=== PATIENT | male | born 1940 | race Caucasian/White ===

== ENCOUNTER 2016-11-28 09:44 | Inpatient (IN) | payer OTHER ==
[2016-11-28] MEDS ORDERED: HYDROmorphONE/DILAUDID 1 MG/ML SYR IVP ONE ×2 (10:36→12:23)
--- NOTE | 2016-11-28 10:40 | EDPHY ---
H & P Time Seen by Provider: 11/28/16 10:18 HPI/ROS: CHIEF COMPLAINT: Abdominal pain HISTORY OF PRESENT ILLNESS: 76-year-old male presents to the emergency department by private vehicle complaining of severe left-sided abdominal pain that began abruptly on evening, 2 days ago. Patient states that the pain has been constant. No nausea or vomiting. He has not had an appetite and has not eaten anything in the last 2 days. He had a small bowel movement 2 days ago. Has had a history of diverticulitis in the past, however this feels different. He uses supplemental oxygen at night time however because of the pain he has been using his oxygen more regularly. Denies chest pain. Denies headache. No fevers or chills. No reported trauma. REVIEW OF SYSTEMS: Constitutional: No fever, no chills. Eyes: No double or blurry vision. ENT: No sore throat. Respiratory: No cough, no shortness of breath. Cardiac: No chest pain. Gastrointestinal: Abdominal pain as above. No vomiting or diarrhea. Genitourinary: No dysuria. Musculoskeletal: No neck or back pain. Skin: No rashes. Neurological: No headache. Past Medical/Surgical History: Prostatectomy for prostate cancer, appendectomy, orthopedic surgeries, diverticulitis Primary care provider is Dr. Henrry Lynne Social History: Smoking Status: Former smoker Physical Exam: General Appearance: Alert, moderate respiratory distress. O2 saturation 96% on supplemental oxygen. Afebrile. Eyes: Pupils equal and round. Extraocular motions are all intact. ENT: Mouth: Mucous membranes moist. Respiratory: No wheezing, rhonchi, or rales, lungs are clear to auscultation. Cardiovascular: Regular rate and rhythm. Gastrointestinal: Abdomen is soft. Tenderness with palpation in for specially the left upper quadrant. There is no rebound, guarding or masses noted. No CVA tenderness bilaterally. Neurological: Alert and oriented x 3, cranial nerves II through XII grossly intact Skin: Warm and dry, no rashes. Musculoskeletal: Nontender to palpate along the cervical, thoracic or lumbar spine. Neck is supple. Extremities: Full range of motion and no peripheral edema. Psychiatric: Patient is oriented X 3, there is no agitation. Constitutional: Initial Vital Signs Temperature (C) 36.8 C 11/28/16 09:47 Heart Rate 83 11/28/16 09:47 Respiratory Rate 20 11/28/16 09:47 Blood Pressure 157/84 H 11/28/16 09:47 O2 Sat (%) 89 L 11/28/16 09:47 O2 Delivery Mode Nasal Cannula O2 (L/minute) 3 Allergies/Adverse Reactions: Sulfa (Sulfonamide Antibiotics) Allergy (Unknown, Verified 03/13/12 11:37) Home Medications: Medication Instructions Recorded Allopurinol [Allopurinol 300 MG 300 mg PO DAILY 11/28/16 (RX)] Aspirin [Aspirin 81mg (*)] 81 mg PO DAILY 11/28/16 Ipratropium/Albuterol [Combivent 1 inh IH BID 11/28/16 Respimat Inhal [place](*)] Ipratropium/Albuterol [Duoneb (*)] 3 ml IH QID PRN 11/28/16 Pantoprazole Sodium [Protonix 40mg 40 mg PO DAILY 11/28/16 (*)] Simvastatin [Zocor] 40 mg PO DAILY@18 11/28/16 Medical Decision Making - Diagnostics Imaging Results: Imaging Impressions Abdomen/Pelvis CT 11/28/16 11:00 Impression: 1. Development of left hydronephrosis and dilatation of the proximal left ureter to the level of the infrarenal abdominal aortic aneurysm. 2. The infrarenal abdominal aortic aneurysm has a diameter estimated at 4.7 cm; it was estimated at 4.5 cm in March. 3. Extensive diverticulosis without definite diverticulitis. 4. Suboptimal evaluation of the bladder due to beam hardening artifact secondary to bilateral hip arthroplasties. 5. See above report for additional findings. Results called and discussed with Delisa Vuong PA-C on 11/28/2016 at 1157 hours. Imaging: Discussed imaging studies w/ call center agent Radiologist ED Course/Re-evaluation: 76-year-old male presents to the emergency department with left upper quadrant abdominal pain. The patient was found to have a creatinine 1.8 and therefore was not given IV contrast. He did receive IV normal saline in the emergency department. CT scan of the abdomen and pelvis without contrast revealed hydronephrosis with obstruction to the left proximal ureter at the level of the infrarenal abdominal aortic aneurysm which now measures 4.7 cm compared with 4.5 cm in March. I initially spoke with Dr. Hussein Cannon who was on-call for urology and also because this patient was in [facility] patient. Dr. Hussein Cannon felt that his symptoms were likely related to his abdominal aortic aneurysm possibly causing the obstruction. I spoke with Dr. Braydon Melo who is on- call for General surgery who reviewed the patient's CT scan does not feel that the patient's pain is related to the AAA. He feels that it is a urologic problem and recommended consulting Urology. The patient has had a previous prostatectomy by Dr. Kike Murray many years ago. Initially the family requested to consult with Dr. Hussein Cannon, however they have changed her mind and now would like who was on-call for Dr. Kike Murray to evaluate the patient. I spoke with Dr. Dalton Kendrick who agrees that the patient can be admitted to the hospitalist and then he also recommended possible nephrostomy tube placed in Interventional Radiology. The patient will be admitted to Dr. Rigo Rain to the medical-surgical floor. Interventional Radiology had already been contacted. Patient required IV Dilaudid for pain control. The case was discussed with Dr. Karen Chen, supervising physician, who did not directly evaluate the patient but agrees with treatment and plan. Differential Diagnosis: Including but not limited to kidney stone, renal colic, ureteral obstruction, AAA, urinary tract infection, pyelonephritis, metastasis - Data Points Laboratory Results: Laboratory Results 11/28/16 10:00 11/28/16 10:00 11/28/16 11/28/16 11/28/16 10:00 10:00 10:00 WBC 17.12 10^3/uL H 10^3/uL (3.80-9.50) RBC 5.41 10^6/uL 10^6/uL (4.40-6.38) Hgb 16.8 g/dL g/dL (13.7-17.5) Hct 49.6 % % (40.0-51.0) MCV 91.7 fL fL (81.5-99.8) MCH 31.1 pg pg (27.9-34.1) MCHC 33.9 g/dL g/dL (32.4-36.7) RDW 15.9 % H % (11.5-15.2) Plt Count 171 10^3/uL 10^3/uL (150-400) MPV 12.2 fL H fL (8.7-11.7) Neut % (Auto) 85.5 % H % (39.3-74.2) Lymph % (Auto) 6.3 % L % (15.0-45.0) [place] % (Auto) 7.2 % % (4.5-13.0) Eos % (Auto) 0.1 % L % (0.6-7.6) Baso % (Auto) 0.4 % % (0.3-1.7) Nucleat RBC Rel Count 0.0 % % (0.0-0.2) Absolute Neuts (auto) 14.65 10^3/uL H 10^3/uL (1.70-6.50) Absolute Lymphs (auto) 1.08 10^3/uL 10^3/uL (1.00-3.00) Absolute Monos (auto) 1.23 10^3/uL H 10^3/uL (0.30-0.80) Absolute Eos (auto) 0.01 10^3/uL L 10^3/uL (0.03-0.40) Absolute Basos (auto) 0.06 10^3/uL 10^3/uL (0.02-0.10) Absolute Nucleated RBC 0.00 10^3/uL 10^3/uL (0-0.01) Immature Gran % 0.5 % % (0.0-1.1) Immature Gran # 0.09 10^3/uL 10^3/uL (0.00-0.10) Sodium 137 mEq/L mEq/L (134-144) Potassium 4.5 mEq/L mEq/L (3.5-5.2) Chloride 101 mEq/L mEq/L (97-110) Carbon Dioxide 23 mEq/l mEq/l (22-31) Anion Gap 13 mEq/L mEq/L (8-16) BUN 24 mg/dL H mg/dL (7-23) Creatinine 1.8 mg/dL H mg/dL (0.7-1.3) Estimated GFR 37 Glucose 123 mg/dL H mg/dL (70-100) Calcium 10.7 mg/dL H mg/dL (8.5-10.4) Phosphorus 2.8 mg/dL mg/dL (2.5-4.5) PTH Intact 140.5 pg/ml H pg/ml (10.8-79.4) Medications Given: Discontinued Medications Hydromorphone HCl (Dilaudid) 0.5 mg IVP EDNOW ONE Stop: 11/28/16 10:37 Last Admin: 11/28/16 10:44 Dose: 0.5 mg Hydromorphone HCl (Dilaudid) 0.5 mg IVP EDNOW ONE Stop: 11/28/16 12:24 Last Admin: 11/28/16 12:30 Dose: 0.5 mg Sodium Chloride (Ns) 1,000 mls @ 0 mls/hr IV ONCE ONE PRN Reason: Wide Open Stop: 11/28/16 11:04 Last Admin: 11/28/16 11:21 Dose: 1,000 mls Ceftriaxone Sodium/Dextrose (Rocephin 1 Gm (Premix)) 50 mls @ 100 mls/hr IV ONCALL ONE PRN Reason: Protocol Stop: 11/28/16 16:33 Last Admin: 11/28/16 16:43 Dose: 50 mls Departure - Departure Disposition: [facility] Inpatient Acute Clinical Impression: Obstructive uropathy Abdominal pain Qualifiers: Abdominal location: left upper quadrant Qualified Code(s): R10.12 - Left upper quadrant pain Hydronephrosis Qualifiers: Hydronephrosis type: unspecified Qualified Code(s): N13.30 - Unspecified hydronephrosis Abdominal aortic aneurysm Qualifiers: Presence of rupture: without rupture Qualified Code(s): I71.4 - Abdominal aortic aneurysm, without rupture Condition: Fair
[2016-11-28 10:44] LABS: % IMMATURE GRANULYOCYTES 0.5 % (0.0-1.1); ABSOLUTE IMMATURE GRANULOCYTES 0.09 10^3/uL (0.00-0.10); ADD DIFF? NO; ADD MORPH? NO; ADD SCAN? NO; ATYPICAL LYMPHOCYTE FLAG 0 (0-99); FRAGMENT RBC FLAG 0 (0-99); HEMATOCRIT 49.6 % (40.0-51.0); HEMOGLOBIN 16.8 g/dL (13.7-17.5); LEFT SHIFT FLG 0 (0-99); LIPEMIA HEMOLYSIS FLAG 90 (0-99); MEAN CELL HEMOGLOBIN 31.1 pg (27.9-34.1); MEAN CELL HEMOGLOBIN CONCENTR. 33.9 g/dL (32.4-36.7); MEAN CELL VOLUME 91.7 fL (81.5-99.8); MEAN PLATELET VOLUME 12.2 fL (8.7-11.7); PLATELET CLUMPS FLAG 0 (0-99); PLATELET COUNT 171 10^3/uL (150-400); RED BLOOD CELL COUNT 5.41 10^6/uL (4.40-6.38); RED CELL DISTRIBUTION WIDTH 15.9 % (11.5-15.2)
[2016-11-28 10:54] LABS: ANION GAP 13 mEq/L (8-16); CALCIUM 10.7 mg/dL (8.5-10.4); CARBON DIOXIDE 23 mEq/l (22-31); CHLORIDE 101 mEq/L (97-110); CREATININE 1.8 mg/dL (0.7-1.3); GLOMERULAR FILTRATION RATE 37; GLUCOSE 123 mg/dL (70-100); POTASSIUM 4.5 mEq/L (3.5-5.2); SODIUM 137 mEq/L (134-144)
[2016-11-28] MEDS ORDERED: NS 1,000 ML IV ONE (11:03)
[2016-11-28] MEDS ORDERED: PROMETHAZINE HCL 25 MG/ML INJ IVP PRN (14:41)
[2016-11-28] MEDS ORDERED: ACETAMINOPHEN 325 MG TAB PO PRN (14:41)
[2016-11-28] MEDS ORDERED: ONDANSETRON 4 MG/2 ML VIAL IVP PRN (14:41)
[2016-11-28] MEDS ORDERED: BISACODYL 10 MG SUPP PR PRN (14:43)
[2016-11-28] MEDS ORDERED: LACTULOSE 20 GM/30 ML UDCUP PO PRN (14:43)
[2016-11-28] MEDS ORDERED: MAGNESIUM HYDROXIDE 30 ML UDCUP PO PRN (14:43)
[2016-11-28] MEDS ORDERED: POLYETHYLENE GLYCOL 3350 17 GM PKT PO PRN (14:43)
--- NOTE | 2016-11-28 15:18 | GHP ---
[f rep st] HISTORY AND PHYSICAL DATE OF ADMISSION: 11/28/2016 CHIEF COMPLAINT: Abdominal pain. HISTORY OF PRESENT ILLNESS: This is a 76-year-old male with history of prostate cancer and kidney s tones, who presented to the emergency department today with sudden onset of left lower abdominal caty n that began abruptly at 7:30 at night on . Since the onset, the pain is described as a con stant 6/10 crampy pain in his left lower abdomen. It has been associated with nausea and vomiting. He has not had anything to eat since the onset of pain. He denies any fevers, but has had some chi lls. He has not had this problem before. He states that nothing has helped this pain so far. PAST MEDICAL HISTORY: 1. Chronic obstructive pulmonary disease. 2. History of coronary artery disease, status post multiple stents. 3. Hypertension. 4. Prostate cancer. 5. Abdominal aortic aneurysm. PAST SURGICAL HISTORY: Appendectomy, prostatectomy, multiple orthopedic procedures, bilateral total hip arthroplasties. HOME MEDICATIONS: Reviewed, refer to [employer] for details. ALLERGIES: Sulfa antibiotics. SOCIAL HISTORY: He is a former smoker. He denies any alcohol or illicit drug use. FAMILY HISTORY: Reviewed. Significant for AAA in his mother, which likely killed her. REVIEW OF SYSTEMS: A comprehensive 10-point review of systems was done and is negative, except for as mentioned in the HPI. PHYSICAL EXAM: VITAL SIGNS: Blood pressure 151/101, heart rate 88, respiratory rate 16, O2 saturat ion 94% on 3 L. Temperature afebrile. GENERAL: Appears to be in a moderate amount of discomfort. HEAD: Normocephalic, atraumatic. EYES: PERRLA. Sclerae anicteric. MOUTH: Moist mucous membran es. NECK: Supple. No lymphadenopathy. CARDIOVASCULAR: S1, S2. No JVD. No lower extremity hanny a. PULMONARY: Lungs are clear. No wheezes, rales, or rhonchi. ABDOMEN: Soft, nontender, nondist ended. There is no guarding or rebound tenderness. There is [id number] distention. EXTREMIT IES: No clubbing or cyanosis. NEURO: Cranial nerves 2-12 grossly intact. No focal motor or senso ry deficits. SKIN: Clear, no rashes. DIAGNOSTICS: WBC 17.12, hemoglobin 16.8, hematocrit 49.6, platelets 171. Sodium 137, potassium 4.5 , chloride 101, CO2 23, BUN 24, creatinine 1.8, up from a baseline of 1.3 in July of 2016, glucose 123, calcium 10.7. A UA has been ordered, but has not yet been collected. A CT of the abdomen and pelvis, which I visualized and personally reviewed, reveals left hydronephro sis and dilation of the proximal left ureter at the level of the infrarenal abdominal aortic aneurys m. There is infrarenal abdominal aortic aneurysm measuring 4.7 cm, which is increased from 4.5 cm s wade March. ASSESSMENT AND PLAN: This is a 76-year-old male, presenting with: 1. Acute onset left lower quadrant abdominal pain, most likely due to left hydronephrosis and urete ral obstruction of unclear etiology. Plan: I discussed the case with Dr. Dalton Kendrick, as well as Dr. Sukumar Marin. Dr. Kendrick recommended that we proceed with a nephrostomy tube placement, and then a nephrostogram to further evaluate the obstruction. Once again, I spoke with Dr. Marin, who will attempt this procedure later on today. For now, his pain will be treated symptomatically with IV Dilaudid. 2. History of chronic obstructive pulmonary disease, with chronic respiratory failure on home O2. Plan: We will continue the patient's home treatment for chronic obstructive pulmonary disease. He will be monitored with central pulse oximetry given that he will be treated with IV narcotics. 3. Acute kidney injury, likely from ureteral obstruction. Plan: We will continue to monitor renal function and avoid nephrotoxins. 4. Mild hypercalcemia. Plan: We will continue to monitor and we will order PTH levels since his c alcium seems to be persistently elevated upon review of this laboratory studies in [employer]. /[id number]/MODL
[2016-11-28 15:29] LABS: COLOR YELLOW; LEUKOCYTE ESTERASE,URINE NEGATIVE (NEGATIVE); NITRITE,URINE NEGATIVE (NEGATIVE)
[2016-11-28] MEDS: HYDROmorphONE/DILAUDID 2 MG/ML INJ IVP PRN (15:34)
[2016-11-28 15:36] LABS: MUCUS TRACE /lpf (NONE-1+)
--- NOTE | 2016-11-28 16:19 | PDCONSULT ---
Manufacturing Applications Engineer Note: : [id number]
[2016-11-28] MEDS: NS 1,000 ML IV SCH (16:44)
[2016-11-28] MEDS ORDERED: LIDOCAINE 1% 300 MG/30 ML SDV ONE (16:45)
[2016-11-28] MEDS ORDERED: IOPAMIDOL (ISOVUE-300) 100 ML BTL ONE ×2 (16:45→19:46)
[2016-11-28 16:49] LABS: APTT 28.9 SEC (23.0-38.0); INR 1.17 (0.83-1.16); PROTIME(PATIENT) 14.9 SEC (12.0-15.0)
[2016-11-28] MEDS ORDERED: fentaNYL 100 MCG/2 ML INJ ONE (16:51)
[2016-11-28] MEDS ORDERED: MIDAZOLAM 2 MG/2 ML VIAL ONE (16:51)
--- NOTE | 2016-11-28 18:08 | GCON ---
[f rep st] CONSULTATION DATE OF CONSULTATION: 11/28/2016 CHIEF COMPLAINT: Abdominal pain. HISTORY OF PRESENT ILLNESS: 76-year-old male patient of my partner, Dr. Hung Murray, who has a histor y of nephrolithiasis and prostate cancer. The patient underwent prostatectomy approximately 13 year s ago. He has had no evidence of recurrence, but describes a recent abnormal PSA which was thought to be laboratory error. The patient developed left-sided abdominal pain at 7:30 at night last . The patient watched the pain for a day and a half but then was unable to tolerate the pain and presented to the emergency room. In the emergency room, a CT scan was performed, which shows dilat ion of the left renal collecting system to the level of the aneurysm. The patient has been seen by General Surgery and reportedly they feel as though the aneurysm is not involved. The size of aneury sm has increased to 4.7 cm since more prior imaging. The development of the left-sided hydronephros is is new. PAST MEDICAL HISTORY: COPD, coronary artery disease, multiple stents, hypertension, prostate cancer , aneurysm, nephrolithiasis. PAST SURGICAL HISTORY: Appendectomy, prostatectomy, multiple orthopedic procedures, total hip arthr oplasties, stone surgery. MEDICATIONS: Home medications reviewed, refer to [facility] for details. ALLERGIES: Sulfa. SOCIAL HISTORY: He is a former smoker. No alcohol or drug abuse. FAMILY HISTORY: Reviewed. He has a AAA in his mother. REVIEW OF SYSTEMS: A comprehensive 10-point review of systems was done and is negative except as me ntioned in the History and Physical Exam. PHYSICAL EXAMINATION: VITAL SIGNS: 151/101, heart rate 88, respiratory rate 16, oxygen saturation 94% on 3 L, he is afebrile. GENERAL: He is reasonably comfortable at this time. Oriented with bebe ropriate mood and affect. NECK: Supple. RESPIRATORY: Effort is unlabored. ABDOMEN: Some mild l eft CVA tenderness. LYMPHATICS: He has no palpable lymphadenopathy. CARDIOVASCULAR: No significa nt edema. PULMONARY: He has increased respiratory effort. EXTREMITIES: Nontender. NEUROLOGIC: Grossly intact. SKIN: Clear, no rashes. LABORATORY DATA: White count 17, H and H 16 and 49, platelets 171. Creatinine is 1.8 from a baseli ne of 1.[address] scan was personally reviewed. ASSESSMENT: Acute onset left-sided flank pain. Expanding aneurysm versus hydronephrosis. Given th e increased hydronephrosis on last imaging and increasing creatinine, I think it is reasonable to pl zachariah a nephrostomy tube. This has been coordinated with . /[id number]/MODL
--- NOTE | 2016-11-28 18:36 | POSTOPPROG ---
Post Op Note Date of Operation: 11/28/16 Surgeon: Misha Marin Anesthesia: IV Sedation Pre-op Diagnosis: Probable distal left ureteral stone Post-op Diagnosis: same Indication: Pain, elevated WBC count Procedure: Percutaneous left nephrostomy Findings: Decompressed system; no hydronephrosis, small bifid pelvis. Inf/Abcess present in the surg proc area at time of surgery?: No EBL: 50-100 Drains: Nephrostomy (10F)
[2016-11-28] MEDS: oxyCODONE IR 5 MG TAB PO PRN (20:58)
[2016-11-28] MEDS: ATORVASTATIN CALCIUM 20 MG TAB PO SCH (21:05)
[2016-11-28] MEDS: SENNOSIDES/DOCUSATE SODIUM TAB PO SCH (21:05)
[2016-11-28] MEDS: IPRATROPIUM/ALBUTEROL 4GM MDI IH SCH (21:07)
[2016-11-29] MEDS: oxyCODONE IR 5 MG TAB PO PRN ×5 (03:17→20:38)
[2016-11-29 06:07] LABS: % IMMATURE GRANULYOCYTES 0.5 % (0.0-1.1); ABSOLUTE IMMATURE GRANULOCYTES 0.05 10^3/uL (0.00-0.10); ADD DIFF? NO; ATYPICAL LYMPHOCYTE FLAG 0 (0-99); HEMOGLOBIN 13.9 g/dL (13.7-17.5); LEFT SHIFT FLG 0 (0-99); MEAN CELL HEMOGLOBIN 31.2 pg (27.9-34.1); MEAN CELL HEMOGLOBIN CONCENTR. 33.1 g/dL (32.4-36.7); MEAN CELL VOLUME 94.2 fL (81.5-99.8); MEAN PLATELET VOLUME 11.9 fL (8.7-11.7); PLATELET COUNT 133 10^3/uL (150-400); RED BLOOD CELL COUNT 4.46 10^6/uL (4.40-6.38); RED CELL DISTRIBUTION WIDTH 15.6 % (11.5-15.2)
[2016-11-29 06:08] LABS: ADD MORPH? NO; ADD SCAN? NO; FRAGMENT RBC FLAG 20 (0-99); LIPEMIA HEMOLYSIS FLAG 80 (0-99); PLATELET CLUMPS FLAG 0 (0-99)
[2016-11-29 06:22] LABS: CALCIUM 9.9 mg/dL (8.5-10.4); CARBON DIOXIDE 26 mEq/l (22-31); CHLORIDE 103 mEq/L (97-110); CREATININE 1.4 mg/dL (0.7-1.3); GLOMERULAR FILTRATION RATE 50; GLUCOSE 106 mg/dL (70-100); SODIUM 136 mEq/L (134-144)
[2016-11-29 06:38] LABS: ANION GAP 7 mEq/L (8-16); POTASSIUM 4.6 mEq/L (3.5-5.2)
[2016-11-29] MEDS: ASPIRIN EC 81 MG TAB PO SCH (07:43)
[2016-11-29] MEDS: ALLOPURINOL 300 MG TAB PO SCH (07:43)
[2016-11-29] MEDS: PANTOPRAZOLE SODIUM 40 MG TAB PO SCH (07:44)
[2016-11-29] MEDS: ENOXAPARIN 40 MG/0.4 ML SYR SC SCH (07:44)
[2016-11-29] MEDS: NS 1,000 ML IV SCH (08:13)
[2016-11-29] MEDS: IPRATROPIUM/ALBUTEROL 4GM MDI IH SCH ×2 (08:24→21:18)
[2016-11-29] MEDS: SENNOSIDES/DOCUSATE SODIUM TAB PO SCH ×2 (11:06→20:38)
[2016-11-29] MEDS ORDERED: IOPAMIDOL (ISOVUE-300) 100 ML BTL ONE (14:50)
--- NOTE | 2016-11-29 15:00 | HOSPPROG ---
Hospitalist Progress Note Assessment/Plan: #resolved llq abd pain secondary to renal colic and ureteral obstruction -cont perc nephrostomy for now -possible ureteroscopy for stone removal #improving augusto secondary to above #resolved hypercalcemia with elevated pth suggestive of hyperparathyroidism -recommend outpt workup with endo #hematuria -check h/h in am and continue inpatient care Subjective: resolved abd pain. still feels very tired and weak. still npo. perc neph draining bloody urine Objective: Vital Signs Temp Pulse Resp BP Pulse Ox 36.7 C 83 16 123/83 H 94 11/29/16 11:45 11/29/16 11:45 11/29/16 11:45 11/29/16 11:45 11/29/16 11:45 Laboratory Results 11/29/16 05:10 11/29/16 05:10 11/28/16 11/29/16 11/30/16 05:59 05:59 05:59 Intake Total 900 Output Total 650 350 Balance 250 -350 PT 14.9 SEC (12.0-15.0) 11/28/16 16:26 INR 1.17 (0.83-1.16) H 11/28/16 16:26 - Physical Exam Constitutional: no apparent distress, appears nourished, not in pain Cardiovascular: regular rate and rhythym, no murmur, rub, or gallop Respiratory: no respiratory distress, no rales or rhonchi, clear to auscultation ICD10 Worksheet Patient Problems: Problems Problem Status Onset Dysphagia Active Benign essential hypertension Active Aortic aneurysm Active COPD - Acute exacerbation of chronic obstructive airways disease Active Coronary angioplasty Active Chronic Disease Mgmt/Transitional Care Acute Abdominal pain Acute Obstructive uropathy Acute Hydronephrosis Acute Abdominal aortic aneurysm Acute
[2016-11-29] MEDS: ATORVASTATIN CALCIUM 20 MG TAB PO SCH (18:00)
[2016-11-29] MEDS: HYDROmorphONE/DILAUDID 2 MG/ML INJ IVP PRN (23:49)
[2016-11-30 05:42] LABS: % IMMATURE GRANULYOCYTES 0.5 % (0.0-1.1); ABSOLUTE IMMATURE GRANULOCYTES 0.05 10^3/uL (0.00-0.10); ADD DIFF? NO; ADD MORPH? NO; ADD SCAN? NO; ATYPICAL LYMPHOCYTE FLAG 0 (0-99); FRAGMENT RBC FLAG 0 (0-99); HEMATOCRIT 40.3 % (40.0-51.0); HEMOGLOBIN 13.5 g/dL (13.7-17.5); LEFT SHIFT FLG 0 (0-99); LIPEMIA HEMOLYSIS FLAG 80 (0-99); MEAN CELL HEMOGLOBIN 31.9 pg (27.9-34.1); MEAN CELL HEMOGLOBIN CONCENTR. 33.5 g/dL (32.4-36.7); MEAN CELL VOLUME 95.3 fL (81.5-99.8); MEAN PLATELET VOLUME 11.9 fL (8.7-11.7); PLATELET CLUMPS FLAG 0 (0-99); PLATELET COUNT 144 10^3/uL (150-400); RED BLOOD CELL COUNT 4.23 10^6/uL (4.40-6.38); RED CELL DISTRIBUTION WIDTH 15.5 % (11.5-15.2)
[2016-11-30] MEDS: IPRATROPIUM/ALBUTEROL 3 ML DEYVIAL IH PRN (08:40)
[2016-11-30] MEDS: IPRATROPIUM/ALBUTEROL 4GM MDI IH SCH ×2 (08:54→21:00)
[2016-11-30] MEDS: oxyCODONE IR 5 MG TAB PO PRN ×3 (09:08→18:06)
--- NOTE | 2016-11-30 11:51 | HOSPPROG ---
Hospitalist Progress Note Assessment/Plan: #resolved llq abd pain secondary to renal colic and ureteral obstruction -cont perc nephrostomy for now - Await ureteroscopy for stone removal #improving augusto secondary to above #resolved hypercalcemia with elevated pth suggestive of hyperparathyroidism -recommend outpt workup with endo #hematuria with stable H&H # 4.7 cm infrarenal abdominal aortic aneurysm - I discussed case with Dr. Pineda from vascular surgery will see the patient later today. Subjective: Improving hematuria. He had improved abdominal pain. Denies any fevers or chills. Objective: Vital Signs Temp Pulse Resp BP Pulse Ox 36.3 C 88 22 H 126/83 H 95 11/30/16 08:00 11/30/16 08:31 11/30/16 08:31 11/30/16 08:00 11/30/16 08:31 Laboratory Results 11/30/16 05:05 11/29/16 05:10 11/29/16 11/30/16 12/01/16 05:59 05:59 05:59 Intake Total 900 880 Output Total 650 900 350 Balance 250 -20 -350 PT 14.9 SEC (12.0-15.0) 11/28/16 16:26 INR 1.17 (0.83-1.16) H 11/28/16 16:26 - Physical Exam Constitutional: no apparent distress, appears nourished, not in pain Respiratory: no respiratory distress, no rales or rhonchi, clear to auscultation Genitourinary: other ( Nephrostomy tube in place with blood-tinged urine) Neurologic: AAOx3, sensation intact bilaterally ICD10 Worksheet Patient Problems: Problems Problem Status Onset Dysphagia Active Benign essential hypertension Active Aortic aneurysm Active COPD - Acute exacerbation of chronic obstructive airways disease Active Coronary angioplasty Active Chronic Disease Mgmt/Transitional Care Acute Abdominal pain Acute Obstructive uropathy Acute Hydronephrosis Acute Abdominal aortic aneurysm Acute
[2016-11-30] MEDS: ASPIRIN EC 81 MG TAB PO SCH (15:54)
[2016-11-30] MEDS: ALLOPURINOL 300 MG TAB PO SCH (15:54)
[2016-11-30] MEDS: SENNOSIDES/DOCUSATE SODIUM TAB PO SCH ×2 (15:55→20:53)
[2016-11-30] MEDS: PANTOPRAZOLE SODIUM 40 MG TAB PO SCH (15:55)
--- NOTE | 2016-11-30 17:57 | PDANEPAE ---
ANE History of Present Illness ureteral stone ANE Past Medical History - Cardiovascular History Hx Hypertension: No Hx Arrhythmias: No Hx Chest Pain: No Hx Coronary Artery / Peripheral Vascular Disease: No Hx CHF / Valvular Disease: No Hx Palpitations: No - Pulmonary History Hx COPD: Yes Hx Asthma/Reactive Airway Disease: No Hx Recent Upper Respiratory Infection: No Hx Oxygen in Use at Home: No Hx Sleep Apnea: No - Endocrine History Hx Diabetes: No Hypothyroid: No Hyperthyroid: No Obesity: no - Renal History Hx Renal Disorders: Yes ANE Review of Systems - Exercise capacity Exercise capacity: >=4 METS ANE Patient History - Allergies Allergies/Adverse Reactions: Sulfa (Sulfonamide Antibiotics) Allergy (Unknown, Verified 03/13/12 11:37) - Home Medications Home medications: home medication list seen and reviewed Home Medications: Allopurinol [Allopurinol 300 MG (RX)] 300 mg PO DAILY 11/28/16 [Last Taken 11/28] Aspirin [Aspirin 81mg (*)] 81 mg PO DAILY 11/28/16 [Last Taken 11/28/16] Ipratropium/Albuterol [Combivent Respimat Inhal [place](*)] 1 inh IH BID 11/28/16 [Last Taken 11/28/16] Ipratropium/Albuterol [Duoneb (*)] 3 ml IH QID PRN 11/28/16 [Last Taken 11/28/16 ] Pantoprazole Sodium [Protonix 40mg (*)] 40 mg PO DAILY 11/28/16 [Last Taken 09/09] Simvastatin [Zocor] 40 mg PO DAILY@18 11/28/16 [Last Taken 11/27/16] - Anes Hx Anes Hx: no prior problems - Smoking Hx Smoking Status: Former smoker ANE Labs/Vital Signs - Labs Result Diagrams: 11/30/16 05:05 11/29/16 05:10 - Vital Signs Blood Pressure: 112/69 Heart Rate: 69 Respiratory Rate: 18 O2 Sat (%): 93 Height: 180.34 cm Weight: 77.564 kg ANE Physical Exam - Airway Neck exam: FROM Mallampati Score: Class 1 Mouth exam: normal dental/mouth exam, clemons - Pulmonary Pulmonary: no respiratory distress - Cardiovascular Cardiovascular: regular rate and rhythym ANE Anesthesia Plan Anesthesia Plan: general endotracheal anesthesia
[2016-11-30] MEDS ORDERED: PROPOFOL 200 MG/20 ML VIAL ONE (18:02)
[2016-11-30] MEDS ORDERED: fentaNYL 100 MCG/2 ML INJ ONE (18:02)
[2016-11-30] MEDS ORDERED: IOPAMIDOL (ISOVUE-300) 150 ML BTL ONE (18:06)
[2016-11-30] MEDS ORDERED: LIDOCAINE 2% JELLY 20 ML (UROJECT) ONE (18:07)
[2016-11-30] MEDS ORDERED: LR 1,000 ML IV ONE (18:20)
[2016-11-30] MEDS ORDERED: CEFAZOLIN 2 GM/DEXTROSE/100 ML BAG IV ONE (18:49)
[2016-11-30] MEDS: ATORVASTATIN CALCIUM 20 MG TAB PO SCH (19:06)
[2016-11-30] MEDS ORDERED: ACETAMINOPHEN 500 MG TAB PO PRN (19:42)
[2016-11-30] MEDS ORDERED: ONDANSETRON 4 MG/2 ML VIAL IVP PRN (19:42)
[2016-11-30] MEDS ORDERED: NALOXONE HCL 0.4 MG/ML INJ IVP PRN (19:42)
[2016-11-30] MEDS ORDERED: fentaNYL 100 MCG/2 ML INJ IVP PRN (19:42)
[2016-11-30] MEDS ORDERED: HYDROmorphONE/DILAUDID 1 MG/ML SYR IVP PRN (19:42)
--- NOTE | 2016-11-30 19:47 | SUROPNOTE ---
[facility] Operative Report - Surgery Cysto, ureteroscopy NO STONE SEEN 6 fr stent inserted dictation [id number]
--- NOTE | 2016-11-30 19:54 | SOAPPROG ---
[facility] Progress Note Assessment/Plan: Assessment: 76-year-old male seen because of slight enlargement of a AAA. His infrarenal aneurysm now measures 4.7 cm transversely.. He has no symptoms from this at this time He is good distal pulses in ambulates adequately HEENT shows no bruits or icterus/chest clear/cor regular rhythm/ Abdomen: Soft without palpable aneurysm or bruit or other masses Extremities full show full pulses Plan: Follow-up AAA as an outpatient with serial ultrasounds if he shows continued increase would recommend endovascular repair 11/30/16 19:51 Objective: Vital Signs Temp Pulse Resp BP Pulse Ox 36.5 C 69 18 112/69 93 11/30/16 18:27 11/30/16 18:35 11/30/16 18:35 11/30/16 18:35 11/30/16 18:35 Laboratory Results 11/30/16 05:05 11/29/16 05:10 11/29/16 11/30/16 12/01/16 05:59 05:59 05:59 Intake Total 900 880 530 Output Total 997 902 7726 Balance 250 -20 -520 PT 14.9 SEC (12.0-15.0) 11/28/16 16:26 INR 1.17 (0.83-1.16) H 11/28/16 16:26 ICD10 Worksheet Patient Problems: Problems Problem Status Onset Abdominal aortic aneurysm Acute Abdominal pain Acute Hydronephrosis Acute Obstructive uropathy Acute Aortic aneurysm Active Benign essential hypertension Active COPD - Acute exacerbation of chronic obstructive airways disease Active Coronary angioplasty Active Dysphagia Active Chronic Disease Mgmt/Transitional Care Acute
--- NOTE | 2016-11-30 19:59 | POSTANESTH ---
Post Anesthetic Evaluation Cardiovascular Status: Normal, Stable Respiratory Status: Normal, Stable Level of Consciousness/Mental Status: Can Participate in Eval Pain Control: Adequate, Prn Tx Ordered Nausea/Vomiting Control: Adequate, Prn Tx Ordered Complications Possibly Related to Anesthesia: None Noted
--- NOTE | 2016-11-30 20:04 | GOP ---
[f rep st] OPERATIVE REPORT DATE OF OPERATION: 11/30/2016 SURGEON: Jessica Kendrick MD ANESTHESIA: General. PREOPERATIVE DIAGNOSIS: Distal left ureteral calculus. POSTOPERATIVE DIAGNOSIS: Distal left ureteral calculus. PROCEDURE PERFORMED: FINDINGS: ESTIMATED BLOOD LOSS: Minimal. DESCRIPTION OF PROCEDURE: PROCEDURE: Cystoscopy, left ureteroscopy, left ureteral stent insertion. COMPLICATIONS: None. DRAINS: Left-sided 6-St Helenian variable length stent. TECHNIQUE: The patient was taken to the operating room. General anesthesia was induced. The patie nt was placed in a dorsal lithotomy position, prepped and draped in a sterile fashion. A 22-St Helenian cystoscope with a 30-degree lens was inserted through the patient's urethra into the patient's bladd er. The patient was status post prostatectomy. No urothelial defects, masses or stones were noted. The patient did have slight erythema of the left ureteral orifice. A sensor-type wire was fed without difficulty into the left renal pelvis by fluoroscopy. The inner trocar of an 11/13 access sheath was then used to gently dilate the distal left ureter. No stone wa s palpated. The trochar was removed. The ureteroscope was inserted over the wire into the distal l eft ureter and gradually advanced all the way to the UPJ. No stone was noted. The entire ureter wa s reexamined again. No stone was noted. Special attention was made to the distal ureter where the stone was thought to be, and there was stenosis but no stone, and no stone embedded into the uretera l wall. The scope was removed, leaving the wire in place, and then the wire was back loaded onto a cystoscope and a 6-St Helenian variable stent was placed in the left renal pelvis by fluoroscopy and seen to curl in the bladder by direct vision. The patient's bladder was drained. He was returned to a supine position and, at the time of this dictation, was being prepared for extubation. /[id number]/MODL
[2016-12-01] MEDS: PANTOPRAZOLE SODIUM 40 MG TAB PO SCH (09:15)
[2016-12-01] MEDS: ASPIRIN EC 81 MG TAB PO SCH (09:15)
[2016-12-01] MEDS: ALLOPURINOL 300 MG TAB PO SCH (09:15)
[2016-12-01] MEDS: ENOXAPARIN 40 MG/0.4 ML SYR SC SCH (09:23)
[2016-12-01] MEDS: IPRATROPIUM/ALBUTEROL 3 ML DEYVIAL IH PRN (09:28)
[2016-12-01] MEDS: IPRATROPIUM/ALBUTEROL 4GM MDI IH SCH (09:29)
--- NOTE | 2016-12-01 11:27 | SOAPPROG ---
TONI Progress Note Assessment/Plan: Assessment: 76-year-old male seen because of slight enlargement of a AAA. His infrarenal aneurysm now measures 4.7 cm transversely.. He has no symptoms from this at this time He is good distal pulses in ambulates adequately HEENT shows no bruits or icterus/chest clear/cor regular rhythm/ Abdomen: Soft without palpable aneurysm or bruit or other masses Extremities full show full pulses Plan: Follow-up AAA as an outpatient with serial ultrasounds if he shows continued increase would recommend endovascular repair 11/30/16 19:51 12/01/16 11:25 NO PROBLEMS WITH AAA BUT APPEARS TO HAVE HYPERPARATHYROIDISM/ WILL NEED SESTAMIBI SCAN AND PARATHYROIDECTOMY Objective: Vital Signs Temp Pulse Resp BP Pulse Ox 36.8 C 73 17 126/72 H 96 12/01/16 07:22 12/01/16 09:32 12/01/16 09:32 12/01/16 07:22 12/01/16 09:32 Laboratory Results 11/30/16 05:05 11/29/16 05:10 11/30/16 12/01/16 12/02/16 05:59 05:59 05:59 Intake Total 880 1480 Output Total 900 2155 Balance -20 -675 PT 14.9 SEC (12.0-15.0) 11/28/16 16:26 INR 1.17 (0.83-1.16) H 11/28/16 16:26 ICD10 Worksheet Patient Problems: Problems Problem Status Onset Abdominal aortic aneurysm Acute Abdominal pain Acute Hydronephrosis Acute Obstructive uropathy Acute Aortic aneurysm Active Benign essential hypertension Active COPD - Acute exacerbation of chronic obstructive airways disease Active Coronary angioplasty Active Dysphagia Active Chronic Disease Mgmt/Transitional Care Acute
[2016-12-01] MEDS ORDERED: IOPAMIDOL (ISOVUE-300) 100 ML BTL ONE (18:03)
--- NOTE | 2016-12-01 18:38 | GDS ---
[f rep st] DISCHARGE SUMMARY DISCHARGE DIAGNOSES: 1. Abdominal pain due to distal ureteral stone and obstruction. 2. Infrarenal abdominal aortic aneurysm. 3. Mild hypercalcemia most likely due to newly diagnosed hyperparathyroidism. 4. Chronic respiratory failure due to chronic obstructive pulmonary disease. 5. Resolved acute kidney injury. CONSULTANTS: 1. Dr. Misha Pineda, General Surgery. 2. Dr. Misha Kendrick, Urology. HOSPITAL COURSE BY PROBLEM: 1. Abdominal pain due to distal ureteral stone: The patient was admitted to the hospital where, on initial CT scan, he was noted to have left hydronephrosis and ureteral obstruction. Subsequently, a percutaneous nephrostomy tube was placed by Dr. Marin on 11/28/2016. On 11/29/2016, the patient had a nephrostogram that showed what looked like a distal ureteral stone. Subsequently, he was take n to the operating room on 11/30/2016 for ureteroscopy, stone removal and stent placement which were done. On day of discharge, the patient is pain-free. 2. Hypercalcemia: Upon review of his medical records, it appears that his calcium is always border line high. A PTH level was drawn that was elevated at 140.5. I discussed this finding with the pat ient who plans to follow it up with his primary care provider. He should discuss possible Endocrino logy followup versus referral to general surgeon for a parathyroidectomy. I did discuss the case wi th Dr. Misha Pineda who would be happy to perform the surgery. 3. Enlarging infrarenal AAA: During this hospital stay, he was seen by Dr. Misha Pineda who has r ecommended outpatient monitoring of the aneurysm and possible endovascular stenting if it continues to enlarge. PHYSICAL EXAM ON DAY OF DISCHARGE: VITAL SIGNS: Blood pressure 112/60, pulse 79, respiratory rate 16, O2 saturation 95% on 3 L, temperature afebrile. GENERAL: No acute distress. HEART: S1, S2. LUNGS: Clear. ABDOMEN: Soft. EXTREMITIES: No edema. PERTINENT LABS AND STUDIES: CT scan done of the abdomen on 11/28/2016: Refer to report. PROCEDURES DONE THIS HOSPITAL STAY: Ureteroscopy and 6-Rwandan ureteral stent placement done by Dr. Kendrick on 11/30/2016, refer to report. PTH was elevated at 140.5. DISCHARGE MEDICATIONS: Please refer to discharge medication reconciliation in [facility] for details. DISCHARGE INSTRUCTIONS: Patient will be discharged home where he should follow up with Urology for stent removal as instructed. He should also follow up with his primary care provider regarding his mild hypercalcemia and to further discuss treatment options for hyperparathyroidism. He should foll ow up with Dr. 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 /[id number]/MODL
[2016-12-01] MEDS: oxyCODONE IR 5 MG TAB PO PRN (18:42)
[2016-12-01] MEDS: ATORVASTATIN CALCIUM 20 MG TAB PO SCH (18:43)
[2016-12-01] MEDS: SENNOSIDES/DOCUSATE SODIUM TAB PO SCH ×2 (19:14→19:58)
[2016-12-01] MEDS: HYDROmorphONE/DILAUDID 2 MG/ML INJ IVP PRN (19:56)
[2016-12-01] MEDS: OXYMETAZOLINE 30 ML NASAL SPRAY EACHNARE SCH (20:35)
[2016-12-01] MEDS ORDERED: ceFAZolin 2 GM/DEXTROSE 100 ML IV ONE (20:38)
[2016-12-02] MEDS: HYDROmorphONE/DILAUDID 2 MG/ML INJ IVP PRN (00:09)
[2016-12-02] MEDS: IPRATROPIUM/ALBUTEROL 4GM MDI IH SCH ×3 (04:12→22:13)
[2016-12-02 06:04] LABS: CALCIUM 10.1 mg/dL (8.5-10.4); CREATININE 1.2 mg/dL (0.7-1.3)
[2016-12-02 06:15] LABS: PTH INTACT NO MINERALS 164.3 pg/ml (10.8-79.4)
[2016-12-02] MEDS: ALLOPURINOL 300 MG TAB PO SCH (08:55)
[2016-12-02] MEDS: ASPIRIN EC 81 MG TAB PO SCH (08:56)
[2016-12-02] MEDS: ENOXAPARIN 40 MG/0.4 ML SYR SC SCH (08:56)
[2016-12-02] MEDS: PANTOPRAZOLE SODIUM 40 MG TAB PO SCH (08:57)
[2016-12-02] MEDS: SENNOSIDES/DOCUSATE SODIUM TAB PO SCH ×2 (08:57→22:19)
[2016-12-02] MEDS: OXYMETAZOLINE 30 ML NASAL SPRAY EACHNARE SCH (08:58)
[2016-12-02] MEDS: IPRATROPIUM/ALBUTEROL 3 ML DEYVIAL IH PRN (10:43)
--- NOTE | 2016-12-02 13:08 | SOAPPROG ---
TONI Progress Note Assessment/Plan: Assessment/Plan: 76 Y M neprholithiasis, AAA, hyperparathyroidism. Parathyroidectomy today. All risks and options previously discussed with Dr. Pineda and reviewed today. Patient requests to proceed. Consent in chart. Ancef preop. alert, nad ctab rrr abd soft, drain in place 12/02/16 13:06 Objective: Vital Signs Temp Pulse Resp BP Pulse Ox 36.6 C 75 18 139/61 H 92 12/02/16 11:36 12/02/16 11:36 12/02/16 11:36 12/02/16 11:36 12/02/16 11:36 Laboratory Results 11/30/16 05:05 11/29/16 05:10 12/01/16 12/02/16 12/03/16 05:59 05:59 05:59 Intake Total 1480 250 Output Total 2155 300 Balance -675 -50 PT 14.9 SEC (12.0-15.0) 11/28/16 16:26 INR 1.17 (0.83-1.16) H 11/28/16 16:26 ICD10 Worksheet Patient Problems: Problems Problem Status Onset Abdominal aortic aneurysm Acute Abdominal pain Acute Hydronephrosis Acute Obstructive uropathy Acute Aortic aneurysm Active Benign essential hypertension Active COPD - Acute exacerbation of chronic obstructive airways disease Active Coronary angioplasty Active Dysphagia Active Chronic Disease Mgmt/Transitional Care Acute
[2016-12-02] MEDS ORDERED: BUPIVACAINE/EPI 0.5% 30 ML SDV ONE (13:11)
[2016-12-02] MEDS ORDERED: THROMBIN (BOVINE) 5,000 UNIT VIAL TP ONE (13:11)
[2016-12-02] MEDS ORDERED: BACITRACIN ZINC 14.2 GM OINTTUBE TP ONE (13:11)
[2016-12-02] MEDS ORDERED: CEFAZOLIN 2 GM/DEXTROSE/100 ML BAG IV ONE (13:14)
--- NOTE | 2016-12-02 13:25 | PDANEPAE ---
ANE History of Present Illness hyperparathyroidism ANE Past Medical History Past Medical History: aaa, copd - Cardiovascular History Hx Hypertension: No Hx Arrhythmias: No Hx Chest Pain: No Hx Coronary Artery / Peripheral Vascular Disease: No Hx CHF / Valvular Disease: No Hx Palpitations: No - Pulmonary History Hx COPD: Yes Hx Asthma/Reactive Airway Disease: No Hx Recent Upper Respiratory Infection: No Hx Oxygen in Use at Home: No Hx Sleep Apnea: Yes Sleep Apnea Screening Result - Last Documented: Positive - Endocrine History Hx Diabetes: No Hypothyroid: No Hyperthyroid: No Obesity: no - Renal History Hx Renal Disorders: Yes ANE Review of Systems - Exercise capacity METS (RN): 1 METS ANE Patient History - Allergies Allergies/Adverse Reactions: Sulfa (Sulfonamide Antibiotics) Allergy (Unknown, Verified 03/13/12 11:37) - Home Medications Home Medications: Allopurinol [Allopurinol 300 MG (RX)] 300 mg PO DAILY 11/28/16 [Last Taken 11/28] Aspirin [Aspirin 81mg (*)] 81 mg PO DAILY 11/28/16 [Last Taken 11/28/16] Ipratropium/Albuterol [Combivent Respimat Inhal [place](*)] 1 inh IH BID 11/28/16 [Last Taken 11/28/16] Ipratropium/Albuterol [Duoneb (*)] 3 ml IH QID PRN 11/28/16 [Last Taken 11/28/16 ] Pantoprazole Sodium [Protonix 40mg (*)] 40 mg PO DAILY 11/28/16 [Last Taken 09/09] Simvastatin [Zocor] 40 mg PO DAILY@18 11/28/16 [Last Taken 11/27/16] - NPO status NPO Since - Liquids (Date): 12/02/16 NPO Since - Liquids (Time): 00:00 NPO Since - Solids (Date): 12/02/16 NPO Since - Solids (Time): 00:00 - Smoking Hx Smoking Status: Former smoker ANE Labs/Vital Signs - Labs Result Diagrams: 11/30/16 05:05 11/29/16 05:10 - Vital Signs Blood Pressure: 139/61 Heart Rate: 75 Respiratory Rate: 18 O2 Sat (%): 92 Height: 180.34 cm Weight: 77.564 kg ANE Physical Exam - Airway Neck exam: FROM Mallampati Score: Class 2 Mouth exam: normal dental/mouth exam - Pulmonary Pulmonary: no respiratory distress - Cardiovascular Cardiovascular: regular rate and rhythym - ASA Status ASA Status: III ANE Anesthesia Plan Anesthesia Plan: general endotracheal anesthesia
[2016-12-02] MEDS ORDERED: ONDANSETRON 4 MG/2 ML VIAL ONE (13:27)
[2016-12-02] MEDS ORDERED: ROCURONIUM 50 MG/5 ML VIAL ONE (13:27)
[2016-12-02] MEDS ORDERED: DEXAMETHASONE 4 MG/ML VIAL ONE (13:27)
[2016-12-02] MEDS ORDERED: PROPOFOL 200 MG/20 ML VIAL ONE (13:28)
[2016-12-02] MEDS ORDERED: HYDROmorphONE/DILAUDID 2 MG/ML INJ ONE (13:28)
[2016-12-02] MEDS ORDERED: fentaNYL 100 MCG/2 ML INJ ONE (13:28)
[2016-12-02] MEDS ORDERED: LR 1,000 ML IV ONE (13:30)
[2016-12-02] MEDS ORDERED: epHEDrine SULFATE 10 MG/ML SYR ONE ×2 (14:17)
[2016-12-02] MEDS ORDERED: PHENYLEPHRINE HCL 100 MCG/ML SYR ONE (14:17)
--- NOTE | 2016-12-02 15:23 | HOSPPROG ---
Hospitalist Progress Note Assessment/Plan: multiple attempts to see patient unsuccessful as the patient is in surgery. VS reviewed No new labs will order labs in a.m. will attempt to see later today, if unable, will see in a.m. Objective: Vital Signs Temp Pulse Resp BP Pulse Ox 36.6 C 75 18 139/61 H 92 12/02/16 13:04 12/02/16 13:25 12/02/16 13:25 12/02/16 13:25 12/02/16 13:25 Laboratory Results 11/30/16 05:05 11/29/16 05:10 12/01/16 12/02/16 12/03/16 05:59 05:59 05:59 Intake Total 1480 250 Output Total 2155 300 Balance -675 -50 PT 14.9 SEC (12.0-15.0) 11/28/16 16:26 INR 1.17 (0.83-1.16) H 11/28/16 16:26 ICD10 Worksheet Patient Problems: Problems Problem Status Onset Abdominal aortic aneurysm Acute Abdominal pain Acute Hydronephrosis Acute Obstructive uropathy Acute Aortic aneurysm Active Benign essential hypertension Active COPD - Acute exacerbation of chronic obstructive airways disease Active Coronary angioplasty Active Dysphagia Active Chronic Disease Mgmt/Transitional Care Acute
[2016-12-02] MEDS ORDERED: NALOXONE HCL 0.4 MG/ML INJ IVP PRN (15:29)
[2016-12-02] MEDS ORDERED: fentaNYL 100 MCG/2 ML INJ IVP PRN (15:29)
[2016-12-02] MEDS ORDERED: HYDROmorphONE/DILAUDID 1 MG/ML SYR IVP PRN (15:29)
--- NOTE | 2016-12-02 16:01 | POSTOPPROG ---
Post Op Note Date of Operation: 12/02/16 Surgeon: Misha Pineda Lead Producer: Kari Mcnair Anesthesiologist: Juan C Anesthesia: GET(General Endotracheal) Pre-op Diagnosis: Hyperparathyroidism Post-op Diagnosis: Same Indication: Renal stones, hyperparathyroidism Procedure: Parathyroidectomy Inf/Abcess present in the surg proc area at time of surgery?: No Depth: Organ Space EBL: Minimal Specimen(s): Upper left pole parathyroid gland Left lower lobe probable thyroid nodule
[2016-12-02] MEDS: oxyCODONE IR 5 MG TAB PO PRN ×3 (17:39→22:44)
[2016-12-02] MEDS: ATORVASTATIN CALCIUM 20 MG TAB PO SCH (17:47)
[2016-12-03 04:38] VITALS: TEMP 98.1
[2016-12-03] MEDS: oxyCODONE IR 5 MG TAB PO PRN (04:39)
[2016-12-03 05:17] LABS: % IMMATURE GRANULYOCYTES 0.5 % (0.0-1.1); ABSOLUTE IMMATURE GRANULOCYTES 0.05 10^3/uL (0.00-0.10); ADD DIFF? NO; ADD MORPH? NO; ADD SCAN? NO; ATYPICAL LYMPHOCYTE FLAG 10 (0-99); FRAGMENT RBC FLAG 0 (0-99); HEMOGLOBIN 13.6 g/dL (13.7-17.5); LEFT SHIFT FLG 0 (0-99); LIPEMIA HEMOLYSIS FLAG 80 (0-99); MEAN CELL HEMOGLOBIN 31.1 pg (27.9-34.1); MEAN CELL HEMOGLOBIN CONCENTR. 32.4 g/dL (32.4-36.7); MEAN CELL VOLUME 95.9 fL (81.5-99.8); PLATELET CLUMPS FLAG 0 (0-99); PLATELET COUNT 177 10^3/uL (150-400); RED BLOOD CELL COUNT 4.38 10^6/uL (4.40-6.38); RED CELL DISTRIBUTION WIDTH 14.8 % (11.5-15.2)
[2016-12-03 05:28] LABS: ANION GAP 7 mEq/L (8-16); CALCIUM 9.4 mg/dL (8.5-10.4); CARBON DIOXIDE 33 mEq/l (22-31); CHLORIDE 98 mEq/L (97-110); CREATININE 1.3 mg/dL (0.7-1.3); GLOMERULAR FILTRATION RATE 54; GLUCOSE 123 mg/dL (70-100); MAGNESIUM 1.8 mg/dL (1.6-2.3); POTASSIUM 4.7 mEq/L (3.5-5.2); SODIUM 138 mEq/L (134-144)
[2016-12-03] MEDS: ALLOPURINOL 300 MG TAB PO SCH (08:44)
[2016-12-03] MEDS: ENOXAPARIN 40 MG/0.4 ML SYR SC SCH (08:45)
[2016-12-03] MEDS: SENNOSIDES/DOCUSATE SODIUM TAB PO SCH (08:45)
[2016-12-03] MEDS: ASPIRIN EC 81 MG TAB PO SCH (08:45)
[2016-12-03] MEDS: PANTOPRAZOLE SODIUM 40 MG TAB PO SCH (08:45)
[2016-12-03] MEDS: IPRATROPIUM/ALBUTEROL 3 ML DEYVIAL IH PRN (09:00)
[2016-12-03] MEDS: IPRATROPIUM/ALBUTEROL 4GM MDI IH SCH (09:22)
--- NOTE | 2016-12-03 10:16 | SOAPPROG ---
SOAP Progress Note Assessment/Plan: Assessment: Braydon is a 76 yo male with a history of renal stones who is POD #1 s/p parathyroidectomy and probable thyroid nodule removed. Recovering well. PTH 10.0 today Ca within normal limits. Dispo: to home today S: Patient feeling well today. Minimal incisional pain that is well controlled. Denies hoarseness, dysphagia, N/V/D/C. Passing flatus and having BM. Tolerating diet. Feels ready to go home today. O: Well appearing nontoxic male, NAD MMM Abdomen soft, nontender, +BS Incision with gauze dressing C/D/I Good neck ROM 12/03/16 12:53 Objective: Vital Signs Temp Pulse Resp BP Pulse Ox 36.7 C 75 16 129/70 H 91 L 12/03/16 04:00 12/03/16 09:06 12/03/16 09:06 12/03/16 04:00 12/03/16 09:06 Laboratory Results 12/03/16 04:44 12/03/16 04:44 12/02/16 12/03/16 12/04/16 05:59 05:59 05:59 Intake Total 250 Output Total 300 Balance -50 PT 14.9 SEC (12.0-15.0) 11/28/16 16:26 INR 1.17 (0.83-1.16) H 11/28/16 16:26 ICD10 Worksheet Patient Problems: Problems Problem Status Onset Aortic aneurysm Active Benign essential hypertension Active COPD - Acute exacerbation of chronic obstructive airways disease Active Coronary angioplasty Active Dysphagia Active Abdominal aortic aneurysm Acute Abdominal pain Acute Chronic Disease Mgmt/Transitional Care Acute Hydronephrosis Acute Obstructive uropathy Acute
[2016-12-03 11:12] VITALS: BP 133/69; PULSE 102; RESP 20; O2SAT 96
--- NOTE | 2016-12-03 11:56 | PDDCSUM ---
Discharge Summary Discharge Summary: Please reference previously dictated discharge summary on 12/01. The patient was kept on the planned discharge day as he had parathyroidectomy on 12/[address] Pineda. He was monitored overnight. He is POD #1 and doing well. He is tolerating a normal diet, no dysphagia, pain is well controlled. He wants to be discharged. He has been cleared for discharge by Dr. Pineda. He will f/u with Dr. Pineda in about a week. DDX: #Hyperparathyroidism: s/p parathyroidectomy and removal of likely thyroid nodule. PTH 10, Ca ok on discharge. -f/u with Dr. Pineda -Path needs f/u #Hypercalcemia #Renal colic, ureteral obstruction, Left ureteral stent -Per previous discharge summary -f/u with Urology for stent remova #acute pain mgmt: script provided # 4.7 cm infrarenal abdominal aortic aneurysm: Not symptomatic. Was evaluated by Dr. Pineda. Needs f/u ultrasound. BP mgmt, no interventions planned at this time. F/u with Dr. Pineda PE: VSS NAD AAOX3 RRR CTAB S/NT/ND NO EDEMA DISCHARGE MEDS: SEE MED REC F/U: Per above, I also asked him to f/u with his PCP but he does not think he will do this. total time spent on discharge is greater than 35 minutes
== END 2016-12-03 12:07 | disposition home or self-care (01) | DRG 660 ==
LOC: F3E 13:30 → OBSVTOIN 14:41
PROVIDERS: ADMIT Family Medicine; ATTEND Family Medicine
PROC: 0T9130Z Drainage of Left Kidney with Drainage Device, Percutaneous Approach (ICD-10-PCS; 2016-11-28)
PROC: BT121ZZ Fluoroscopy of Left Kidney using Low Osmolar Contrast (ICD-10-PCS; 2016-11-29)
PROC: 0T9480Z Drainage of Left Kidney Pelvis with Drainage Device, Via Natural or Artificial Opening Endoscopic (ICD-10-PCS; principal; 2016-11-30 19:45)
PROC: BT1F1ZZ Fluoroscopy of Left Kidney, Ureter and Bladder using Low Osmolar Contrast (ICD-10-PCS; 2016-12-01)
PROC: 0GTM0ZZ Resection of Left Superior Parathyroid Gland, Open Approach (ICD-10-PCS; 2016-12-02)
PROC: 0GB Endocrine System, Excision (ICD-10-PCS; 2016-12-02)
DX: N20.1 Calculus of ureter (principal); N23 Unspecified renal colic; E21.3 Hyperparathyroidism, unspecified; N17.9 Acute kidney failure, unspecified; J96.10 Chronic respiratory failure, unspecified whether with hypoxia or hypercapnia; E83.52 Hypercalcemia; I71.4 Abdominal aortic aneurysm, without rupture; J44.9 Chronic obstructive pulmonary disease, unspecified; I25.10 Atherosclerotic heart disease of native coronary artery without angina pectoris; I10 Essential (primary) hypertension; Z90.79 Acquired absence of other genital organ(s); Z95.5 Presence of coronary angioplasty implant and graft; Z85.46 Personal history of malignant neoplasm of prostate; Z99.81 Dependence on supplemental oxygen
CPT/HCPCS: 96374; A9500; C1729; C1769; C1894; C2625; J0690; J0696; J1100; J1170; J1644; J1650; J2250; J2370; J2405; J2704; J3010; Q9967